=== PATIENT | male | born 1985 | race Caucasian/White ===

== ENCOUNTER 2021-09-14 16:01 | Emergency (ER) | payer OTHER ==
[2021-09-14] MEDS ORDERED: IBUPROFEN600 MG PO (17:57)
== END 2021-09-14 18:23 | disposition home or self-care (01) ==
LOC: ER1 16:01
DX: S63.613A Unspecified sprain of left middle finger, initial encounter (principal); F17.210 Nicotine dependence, cigarettes, uncomplicated; Z88.0 Allergy status to penicillin; W20.8XXA Other cause of strike by thrown, projected or falling object, initial encounter; Y92.009 Unspecified place in unspecified non-institutional (private) residence as the place of occurrence of the external cause
CPT/HCPCS: 73140; 99283